=== PATIENT | male | born 1965 | race Caucasian/White ===

== ENCOUNTER 2018-11-30 23:13 | Emergency (ER) | payer MEDICAID ==
[~2018-11-30] VITALS: Ht 188 cm; Wt 77.8 kg
[2018-11-30 23:17] VITALS: BP 145/91
--- NOTE | 2018-11-30 23:34 | NUR ---
NO ANSWER WHEN CALLED
--- NOTE | 2018-11-30 23:44 | NUR ---
NIL X2
== END 2018-11-30 23:55 | disposition left against medical advice (07) ==
LOC: ED 23:49
DX: M79.642 Pain in left hand (principal); M79.641 Pain in right hand
CPT/HCPCS: 99281

== ENCOUNTER 2020-05-22 07:58 | Emergency (ER) | payer MEDICAID ==
[~2020-05-22] VITALS: Ht 188 cm; Wt 86.8 kg
--- NOTE | 2020-05-22 08:11 | NUR ---
CONTACT WITH PT, 54 YR OLD MALE HERE WITH MULTIPLE COMPLAINTS "NAUSEATED, DIARRHEA, WEAKNESS, FEELING SOB, GETTING HOT FLASHES. OVER LAST FEW DAYS, NUMBNESS IN HANDS (OVER A COUPLE OF MONTHS)" . DENIES COUGH. NO ACUTE DISTRESS NOTED. HOLLY MATHIS AT BEDSIDE TO NAM PT.
--- NOTE | 2020-05-22 08:35 | NUR ---
PT PROVIDED WITH SPECIMAN VILLATORO FOR STOOL SPECIMAN AND URINAL FOR URINE SPECIMAN.
--- NOTE | 2020-05-22 08:50 | NUR ---
STOOL AND URINE SPECIMAN COLLECTED, WALKED TO LAB. PT UPDATED ON POC. NO NEEDS EXPRESSED AT THIS TIME.
[2020-05-22 08:56] LABS: BASOPHILS # (AUTO) 0.02 x10^3/uL (0-0.1); BASOPHILS % (AUTO) 0 % (0-1); EOSINOPHILS # (AUTO) 0.09 x10^3/uL (0-0.4); EOSINOPHILS % (AUTO) 1 % (1-7); LYMPHOCYTES # (AUTO) 1.07 x10^3/uL (1-3.4); LYMPHOCYTES % (AUTO) 8 % (22-44); MD NO; MEAN CORPUSCULAR HEMOGLOBIN 30.9 pg (27.5-34.5); MEAN CORPUSCULAR HGB CONC 32.7 g/dL (33.2-36.2); MEAN CORPUSCULAR VOLUME 94.3 fL (81-97); MEAN PLATELET VOLUME 7.9 fL (7.4-10.4); MONOCYTES # (AUTO) 0.55 x10^3/uL (0.2-0.8); MONOCYTES % (AUTO) 4 % (2-9); NEUTROPHILS % (AUTO) 87 % (42-75); PLATELET COUNT 326 x10^3/uL (130-400); RED CELL DISTRIBUTION WIDTH 13.6 % (9.4-14.8)
[2020-05-22 09:06] LABS: MICROSCOPIC AUTO
[2020-05-22 09:09] LABS: ALANINE AMINOTRANSFERASE 41 U/L (12-78); ALBUMIN 3.5 g/dL (3.4-5.0); CALCIUM 8.8 mg/dL (8.5-10.1); CHLORIDE 111 mmol/L (98-107); CREATININE 0.82 mg/dL (0.7-1.3)
[2020-05-22 09:12] LABS: ALKALINE PHOSPHATASE 90 U/L (45-117); BILIRUBIN,TOTAL 0.5 mg/dL (0.2-1.0); TOTAL PROTEIN 6.9 g/dL (6.4-8.2)
[2020-05-22 09:22] LABS: ANION GAP 3 mmol/L (5-15)
[2020-05-22 09:23] VITALS: BP 111/57
--- NOTE | 2020-05-22 09:23 | NUR ---
PT PROVIDED WITH PO FLUIDS. NO ACUTE DISTRESS NOTED. NO COUGH NOTED. AWAITING TEST RESULTS. NO OTHER NEEDS EXPRESSED AT THIS TIME.
--- NOTE | 2020-05-22 09:48 | NUR ---
REPORT TO YAQUELIN GREEN
--- NOTE | 2020-05-22 10:15 | NUR ---
REPORT FROM POWER GREEN
[2020-05-22 10:17] LABS: CRYPTOSPORIDIUM ANTIGEN Negative (Negative)
--- NOTE | 2020-05-22 10:45 | NUR ---
DC INSTRUCTIONS REVIEWED.
== END 2020-05-22 10:59 | disposition home or self-care (01) ==
LOC: ED 10:36
DX: R19.7 Diarrhea, unspecified (principal); R11.0 Nausea; R06.02 Shortness of breath; R10.9 Unspecified abdominal pain; Z59.0 Homelessness
CPT/HCPCS: 36415; 71045; 80053; 81001; 85025; 87046; 87328; 87329; 87427; 89055; 99284